=== PATIENT | female | born 1940 | race Caucasian/White ===

== ENCOUNTER → 2016-09-01 | Outpatient (CLI) | payer MEDICARE ==
[~2016-09-01] MED LIST: ACTOS45 MG PO; ASPIRIN EC81 MG PO; CARDIZEM CD240 M1 PO; GLUCOPHAGE-DPS500 MG PO; GLUTOSE 1537.5 GM PO; GLYBURIDE PO; HCTZ12.5 MG PO; PRAVACHOL20 MG PO; PROAIR HFA8.5 GM IH; SAVAYSA30 MG PO; TAMBOCOR DPS50 MG PO; TYLENOL DPS325 MG PO; ZITHROMAX500 MG PO
== END | disposition home or self-care (01) ==
LOC: RAD.S 10:00
DX: Z12.31 Encounter for screening mammogram for malignant neoplasm of breast (principal); N63 Unspecified lump in breast

== ENCOUNTER → 2016-09-03 | Outpatient (CLI) | payer MEDICARE | END | disposition home or self-care (01) | LOC: RAD.S 12:57 | DX: R92.8 Other abnormal and inconclusive findings on diagnostic imaging of breast (principal) ==